=== PATIENT | male | born 1965 | race Caucasian/White ===

== ENCOUNTER 2017-11-19 21:45 | Emergency (ER) | payer MEDICARE ==
[~2017-11-19] VITALS: Ht 177.8 cm; Wt 64.6 kg
[~2017-11-19 21:45] MED LIST: ALBU8.5H5 INH; QUET300T5 PO; TRAZ150T62 PO; VENL150C PO
[2017-11-19 21:59] VITALS: BP 156/94
[2017-11-19] MEDS ORDERED: IBUPROFEN 200 MG TABLET ONE (22:42)
== END 2017-11-19 23:21 | disposition home or self-care (01) ==
LOC: ED 23:11
DX: M16.11 Unilateral primary osteoarthritis, right hip (principal); J44.9 Chronic obstructive pulmonary disease, unspecified; Z88.0 Allergy status to penicillin; Z91.013 Allergy to seafood
CPT/HCPCS: 99284

== ENCOUNTER 2019-06-07 18:49 | Inpatient (IN) | payer MEDICARE ==
[~2019-06-07] VITALS: Ht 177.8 cm; Wt 60.0 kg
[~2019-06-07 18:49] MED LIST changes: +ALBU18HF INH; +CEFD300C37 PO; +DOXY100T PO; +GUAI600T31 PO
[2019-06-07 19:54] LABS: BASOPHILS # (AUTO) 0.02 x10^3/uL (0-0.1); BASOPHILS % (AUTO) 0 % (0-1); EOSINOPHILS # (AUTO) 0.49 x10^3/uL (0-0.4); EOSINOPHILS % (AUTO) 7 % (1-7); LYMPHOCYTES # (AUTO) 2.13 x10^3/uL (1-3.4); LYMPHOCYTES % (AUTO) 29 % (22-44); MD NO; MEAN CORPUSCULAR HEMOGLOBIN 29.2 pg (27.5-34.5); MEAN CORPUSCULAR HGB CONC 32.7 g/dL (33.2-36.2); MEAN CORPUSCULAR VOLUME 89.4 fL (81-97); MEAN PLATELET VOLUME 10.1 fL (7.4-10.4); MONOCYTES # (AUTO) 0.57 x10^3/uL (0.2-0.8); MONOCYTES % (AUTO) 8 % (2-9); NEUTROPHILS # (AUTO) 4.06 x10^3/uL (1.8-6.8); NEUTROPHILS % (AUTO) 56 % (42-75); PLATELET COUNT 198 x10^3/uL (130-400); RED BLOOD COUNT 5.19 x10^6/uL (4.38-5.82); RED CELL DISTRIBUTION WIDTH 14.6 % (9.4-14.8)
[2019-06-07] MEDS ORDERED: ALBUTEROL/IPRATROPIUM 2.5MG/0.5MG, 3 ML ONE ×2 (19:56→20:21)
[2019-06-07] MEDS: ALBUTEROL/IPRATROPIUM 2.5MG/0.5MG, 3 ML NPPB SCH ×2 (20:00→20:25)
[2019-06-07 20:06] LABS: ALBUMIN 3.5 g/dL (3.4-5.0); ANION GAP 4 mmol/L (5-15); CALCIUM 8.7 mg/dL (8.5-10.1); CHLORIDE 111 mmol/L (98-107); CREATININE 0.64 mg/dL (0.7-1.3)
[2019-06-07 22:15] VITALS: BP 106/70
[2019-06-07 22:27] VITALS: BP 106/70
[2019-06-07] MEDS ORDERED: hydrALAzine 20 MG/ML, 1ML IVPush PRN (22:30)
[2019-06-07] MEDS ORDERED: ONDANSETRON ODT 4 MG PO PRN (22:30)
[2019-06-07] MEDS ORDERED: DOCUSATE 100 MG CAPSULE PO PRN (22:30)
[2019-06-07] MEDS ORDERED: IBUPROFEN 600 MG TABLET PO PRN (22:30)
[2019-06-07] MEDS ORDERED: ACETAMINOPHEN 325 MG TABLET PO PRN (22:30)
[2019-06-07] MEDS: TEMAZEPAM 15 MG CAPSULE PO PRN (22:53)
[2019-06-07] MEDS: ENOXAPARIN 40 MG/0.4 ML SQ SCH (22:54)
[2019-06-08] MEDS ORDERED: ALBUTEROL/IPRATROPIUM 2.5MG/0.5MG, 3 ML NPPB PRN
[2019-06-08] MEDS ORDERED: FLU VACC QS2019-20 36MOS UP/PF 0.5 ML IM-VACC ONE (01:00)
[2019-06-08 01:19] VITALS: BP 108/69
[2019-06-08 04:43] LABS: BASOPHILS # (AUTO) 0.02 x10^3/uL (0-0.1); BASOPHILS % (AUTO) 0 % (0-1); EOSINOPHILS # (AUTO) 0.01 x10^3/uL (0-0.4); EOSINOPHILS % (AUTO) 0 % (1-7); LYMPHOCYTES # (AUTO) 0.82 x10^3/uL (1-3.4); LYMPHOCYTES % (AUTO) 12 % (22-44); MD NO; MEAN CORPUSCULAR HEMOGLOBIN 29.2 pg (27.5-34.5); MEAN CORPUSCULAR HGB CONC 32.4 g/dL (33.2-36.2); MONOCYTES # (AUTO) 0.11 x10^3/uL (0.2-0.8); MONOCYTES % (AUTO) 2 % (2-9); NEUTROPHILS # (AUTO) 5.63 x10^3/uL (1.8-6.8); NEUTROPHILS % (AUTO) 85 % (42-75); PLATELET COUNT 205 x10^3/uL (130-400); RED BLOOD COUNT 5.16 x10^6/uL (4.38-5.82); RED CELL DISTRIBUTION WIDTH 14.7 % (9.4-14.8)
[2019-06-08 04:56] LABS: ANION GAP 7 mmol/L (5-15); CALCIUM 8.7 mg/dL (8.5-10.1); CHLORIDE 108 mmol/L (98-107)
[2019-06-08 04:58] LABS: CREATININE 0.75 mg/dL (0.7-1.3)
[2019-06-08] MEDS: ALBUTEROL/IPRATROPIUM 2.5MG/0.5MG, 3 ML NPPB SCH ×4 (05:06→18:48)
[2019-06-08 05:37] LABS: AMPHETAMINE SCREEN, URINE Positive (Negative); BARBITURATE SCREEN, URINE Negative (Negative); BENZODIAZEPINE SCREEN, URINE Negative (Negative); CANNABINOID SCREEN, URINE Positive (Negative); COCAINE SCREEN, URINE Negative (Negative); METHADONE SCREEN, URINE Negative (Negative); OPIATE SCREEN, URINE Negative (Negative)
[2019-06-08 08:02] VITALS: BP 111/71
[2019-06-08] MEDS: DOXYCYCLINE 100MG TABLET PO SCH ×2 (10:55→20:53)
[2019-06-08] MEDS: methylPREDNISolone SOD SUCC 125 MG/2 ML IVPush SCH ×3 (10:55→23:10)
[2019-06-08 13:10] VITALS: BP 119/78
[2019-06-08 19:46] VITALS: BP 118/76
[2019-06-08] MEDS: TEMAZEPAM 15 MG CAPSULE PO PRN (19:46)
[2019-06-08] MEDS: ENOXAPARIN 40 MG/0.4 ML SQ SCH (23:10)
[2019-06-09 02:16] VITALS: BP 125/80
[2019-06-09] MEDS: methylPREDNISolone SOD SUCC 125 MG/2 ML IVPush SCH ×2 (05:20→11:24)
[2019-06-09] MEDS: ALBUTEROL/IPRATROPIUM 2.5MG/0.5MG, 3 ML NPPB SCH ×2 (06:39→10:23)
[2019-06-09 07:43] VITALS: BP 113/72
[2019-06-09] MEDS: DOXYCYCLINE 100MG TABLET PO SCH (08:39)
[2019-06-09] MEDS ORDERED: DOXY100T PO (11:06)
[2019-06-09] MEDS ORDERED: PRED20TA PO (11:06)
[2019-06-09] MEDS ORDERED: ALBU18HF INH (11:06)
== END 2019-06-09 13:04 | disposition home or self-care (01) | DRG 189 ==
LOC: ED 20:58 → EDIP 21:22 → 3N 22:01 → DCLOUNGE 06-09 12:49
PROVIDERS: ADMIT Internal Medicine; ATTEND Family Medicine
DX: J96.01 Acute respiratory failure with hypoxia (principal); J44.1 Chronic obstructive pulmonary disease with (acute) exacerbation; F33.9 Major depressive disorder, recurrent, unspecified; F17.200 Nicotine dependence, unspecified, uncomplicated; F12.10 Cannabis abuse, uncomplicated; F15.90 Other stimulant use, unspecified, uncomplicated; I25.2 Old myocardial infarction; Z83.3 Family history of diabetes mellitus
CPT/HCPCS: 36415; 71045; 80048; 80307; 82040; 85025; 90686; 93005; 94640; 99285; G0378; J1650; J7620; J2930; J7512